=== PATIENT | female | born 1975 | race Caucasian/White ===

== ENCOUNTER 2019-12-04 16:04 | Outpatient (CLI) | payer BC, SELFPAY ==
--- NOTE | ~2019-12-04 | MM_ITS ---
EXAMINATION: MM scrn guru implant BI w ruddy HISTORY: Screening mammogram TECHNIQUE: Craniocaudal and mediolateral oblique 3-D tomosynthesis images with implant displacement a nd synthetic 2-D images were generated. Craniocaudal and mediolateral oblique views of the breasts wi thout implant displacement were obtained using full field digital mammography. CAD analysis was submi tted and interpreted. COMPARISON: 11/22/2018, 01/23/2017 BREAST PARENCHYMAL COMPOSITION: There are scattered areas of fibroglandular density. FINDINGS: There is no evidence of suspicious mass, calcification, or architectural distortion to sugg est malignancy in either breast. There has been no suspicious interval change. IMPRESSION: 1. No mammographic evidence of malignancy. 2. Recommend routine screening mammography in one year. BI-RADS Category 1: Negative Reviewed, dictated and finalized at location A.
== END 2019-12-04 16:05 | disposition home or self-care (01) ==
LOC: ANHIMG 16:07
PROVIDERS: PCP Family Medicine; Visit Provider Obstetrics & Gynecology
DX: Z12.31 Encounter for screening mammogram for malignant neoplasm of breast (principal)
CPT/HCPCS: 77063; 77067

== ENCOUNTER 2020-01-19 15:19 | Outpatient (CLI) | payer BC, SELFPAY ==
--- NOTE | ~2020-01-19 | US_ITS ---
EXAMINATION: US venous doppler [facility] DATE: 01/19/2020 15:49 INDICATION: Left lower limb swelling TECHNIQUE: Grayscale ultrasound images without and with compression and Doppler ultrasound images of the left lower extremity veins were obtained. COMPARISON: None. FINDINGS: The visualized portions of left common femoral vein, profunda (deep) femoral vein, femoral vein, popl iteal vein, peroneal veins, posterior tibial veins, gastrocnemius vein and greater saphenous vein out flow are patent. IMPRESSION: 1. No deep venous thrombosis in the left lower limb. Reviewed, dictated and finalized at location B. AUDIT MANAGER
== END 2020-01-19 15:20 | disposition home or self-care (01) ==
PROVIDERS: PCP Family Medicine; Visit Provider Family Medicine
DX: M79.89 Other specified soft tissue disorders (principal)
CPT/HCPCS: 93971

== ENCOUNTER 2020-06-27 23:49 | Emergency (ER) | payer BC, SELFPAY ==
--- NOTE | ~2020-06-27 | XR_ITS ---
EXAMINATION: XR chest 1V portable INDICATION: Hypotension TECHNIQUE: Portable AP chest at 0032 hours COMPARISON: 10/13/2016 FINDINGS: The lungs are free of acute opacities. There is no pleural effusion or pneumothorax. The ca rdiomediastinal silhouette is normal. The visualized osseous structures are unremarkable. IMPRESSION: 1. No acute cardiopulmonary abnormality. Reviewed, dictated and finalized at location A.
--- NOTE | ~2020-06-27 | CT_ITS ---
EXAMINATION: CT abdomen pelvis w con INDICATION: Epigastric pain TECHNIQUE: Computed tomographic images of the abdomen and pelvis were obtained after the administrati on of 100 cc of Omnipaque 350 intravenous contrast. The dose-length product (DLP) was 1449.37 mGy-cm. Automated exposure control and iterative reconstruction technique were employed. COMPARISON: 11/27/2018 FINDINGS: The lung bases are clear. The heart size is normal. Bilateral breast implants are noted. Th e liver is diffusely low in attenuation when compared with the spleen, consistent with hepatic steato sis. The spleen, pancreas, and gallbladder are normal. There are stable low-density nodules of the le ft adrenal gland measuring 10 mm and 13 mm, consistent with adenomas. The right adrenal gland is unre markable. The kidneys are normal. There appears to be mild wall thickening of the descending and sigm oid colon with subtle edematous stranding of the pericolic fat. No pathologically enlarged abdominal or pelvic lymph nodes are identified. There is no free intraperitoneal gas or evidence of bowel obstr uction. There is a moderate volume of liquid stool in the colon. IMPRESSION: 1. CT findings consistent with mild colitis of the descending and proximal sigmoid colon. Reviewed, dictated and finalized at location A. IMPRESSION: 1. CT findings consistent with mild colitis of the descending and proximal sigm oid colon.
[2020-06-27 23:54] VITALS: BP 90/50; PULSE 67; RESP 18; TEMP 36.6; O2SAT 99
[2020-06-28] VITALS (29 sets, daily range): BP systolic 75–147; BP diastolic 44–85; PULSE 57–76; RESP 14–22; O2SAT 99–100
--- NOTE | 2020-06-28 00:06 | ED.ABDPAIN ---
HPI - Abdominal Pain General Chief Complaint: Abdominal Pain Stated Complaint: abd pain Time Seen by Provider: 06/27/20 23:55 History of Present Illness HPI narrative: 45 yo female presents to the ED for abdominal pain. She reports that while eating tonight she suddenly developed upper abdominal pain. This was followed by feeling dizzy, warm, and nauseated. The pain then moved into her chest. That is when she became concerned and EMS was called. During triage here her BP was low, which she says is very out of the ordinary for her. Otherwise she reports that her symptoms have largely resolved. Related Data Home Medications Medication Instructions Recorded Confirmed albuterol sulfate 90 mcg/actuation 2 puff INHALATION Q6H PRN gm 12/31/18 05/19/20 aerosol inhaler Allergies Allergy/AdvReac Type Severity Reaction Status Date / Time No Known Allergies Allergy Verified 06/27/20 23:59 Review of Systems Review of Systems: All systems reviewed & are unremarkable except as noted in HPI and below Constitutional: Constitutional: Denies fever(s) ENT: Reports dizziness PMFSH Past Medical History Medical History ADD (attention deficit disorder) without hyperactivity Benign essential HTN Chronic pain Family History Family History Mother Diabetes mellitus Hypertension Asthma Family history of arthritis Father Hypertension Patient's father is in good health Family history of cardiovascular disease Family history of arthritis Family history of malignant neoplasm Sibling Patient's brother is in good health Family history of arthritis Social History Social History (Updated 05/18/20 @ 16:28 by Prachi Geller) Social History: Smoking packs per day: 1 Smoking cigarettes per day: 20.0 Smoking status: Former smoker Tobacco type: cigarettes Second hand tobacco smoke exposure: No Smoking end date: 02/06/16 Alcohol intake: never Substance use: never Substance use type: does not use Gender identity (if verbalized by the patient): Female Exam Const: General: healthy appearing, no acute distress and alert Orientation/consciousness: patient oriented x3 HENMT: Head: normal to inspection Neck: Neck: normal visual inspection and no lymphadenopathy Chest: Chest palpation & inspection: no tenderness Resp: Effort & Inspection: normal respiratory effort Auscultation: clear to auscultation bilaterally, no rales, no rhonchi and no wheezes Cardio: Jugular venous distension: no JVD Rate: regular rate Rhythm: regular rhythm Heart sounds: no murmurs GI: Inspection: non-distended GI Palp: Yes Soft to palpation, Yes Tenderness to palpation present (GI) (mild and diffuse), No Guarding due to palpation present (GI) and No Rebound tenderness present Auscultation: Hyperactive bowel sounds present Skin: General skin exam: normal color Neuro: General: patient oriented x3, moves all extremities, no focal motor deficits and CN's II-XI intact bilaterally Speech: normal speech Extrem: General: normal to inspection and no edema Psych: Appearance: grossly normal and well kempt Mental Status: mental status grossly normal Affect: normal affect Attitude: cooperative Course Vital Signs Vital signs: Vital Signs Temperature 36.6 C 06/27/20 23:54 Pulse Rate 67 06/27/20 23:54 Respiratory Rate 18 06/27/20 23:54 Blood Pressure 90/50 L 06/27/20 23:54 Pulse Oximetry 99 06/27/20 23:54 Temperature 36.6 C 06/27/20 23:54 Pulse Rate 74 06/28/20 03:20 Respiratory Rate 16 06/28/20 03:20 Blood Pressure 147/85 H 06/28/20 03:20 Pulse Oximetry 99 06/28/20 03:20 MDM - Abdominal Pain MDM Narrative Medical decision making narrative: SHe was initially mildy hypotensive. Labs hint at dehydration. This combined with ongoing vagal stimulation due to gastroenteritis
[2020-06-28] MEDS: SODIUM CHLORIDE 0.9% IV 1,000 ML 999 ML (00:07)
--- NOTE | 2020-06-28 00:18 | ECG_ITS ---
Measurements Intervals [place] Rate: 59 P: 146 WI: 153 QRS: 132 QRSD: 90 T: 106 QT: 422 QTc: 420 Interpretive Statements SINUS RHYTHM LIMB LEAD REVERSAL INCOMPLETE RIGHT BUNDLE BRANCH BLOCK LOW VOLTAGE- LIMB LEADS BASELINE ARTIFACT- II, III, AVF BORDERLINE ECG Electronically Signed On 06-28-2020 6:05:48 CDT by Monroe Miller D.O.
[2020-06-28 00:36] LABS: Basophils Absolute Auto 0.1 K/mm3 (0.0-0.1); Basophils Percent Auto 0.5 % (0.2-1.2); Eosinophils Absolute Auto 0.1 K/mm3 (0-0.3); Eosinophils Percent Auto 0.4 % (0-4.4); Hematocrit 42.2 % (37.0-47.0); Hemoglobin 14.4 g/dL (12.0-15.0); Immature Granulocyte Absolute 0.12 K/mm3 (0.00-0.031); Immature Granulocyte Percent A 0.9 % (0-0.5); Lymphocytes Absolute Auto 2.41 K/mm3 (0.9-3.2); Lymphocytes Percent Auto 18.9 % (18.3-44.2); Mean Corpuscular HGB Conc 34.1 g/dl (32-36); Mean Corpuscular Hemoglobin 31.4 pg (26-34); Mean Corpuscular Volume 91.9 fl (80-100); Mean Platelet Volume 9.3 fl (7.4-10.4); Monocytes Absolute Auto 0.7 K/mm3 (0.1-0.6); Monocytes Percent Auto 5.6 % (2.6-8.5); Neutrophils Absolute Auto 9.4 K/mm3 (1.3-6.7); Neutrophils Percent Auto 73.7 % (45.5-73.1); Platelet Count Result 286 k/mm3 (150-375); Red Blood Count 4.59 M/mm3 (4.2-5.4); Red Cell Distribution Width 12.8 % (11.5-14.5); White Blood Count 12.7 K/mm3 (4.5-10.0)
[2020-06-28 00:44] LABS: INR 1.1; Prothrombin Time 14.4 Seconds (11.1-14.7)
[2020-06-28 00:45] LABS: Partial Thromboplastin Time 23.1 SECONDS (22.3-36.8)
[2020-06-28 00:46] LABS: Lactic Acid Reflex 2.3 mmol/L (0.7-2.1)
[2020-06-28 00:47] LABS: Alanine Aminotransferase 34 U/L (4-35); Alkaline Phosphatase 83 U/L (38-126); Anion Gap 4 mmol/L (8-16); Aspartate Amino Transferase 41 U/L (14-36); Bilirubin,Total 0.4 mg/dL (0.2-1.3); Blood Urea Nitrogen 10 mg/dL (7-17); Calcium 8.5 mg/dL (8.4-10.2); Carbon Dioxide 26 mmol/L (22-30); Chloride 105 mmol/L (98-107); Estimated CRCL calculation 89 ml/min; Estimated Glomerular Filt Rate 60; Glucose 129 mg/dL (65-105); Lipase 83 U/L (23-300); Potassium 3.9 mmol/L (3.4-5.0); Sodium 135 mmol/L (137-145)
[2020-06-28 00:57] LABS: Troponin I < 0.012 ng/mL (0.000-0.034)
--- NOTE | 2020-06-28 01:21 | PC.NURSE ---
Pt has now started to have diarrhea. No blood/dark stools. Pt reports abd pain is easing up.
--- NOTE | 2020-06-28 01:22 | PC.NURSE ---
Pt reports she normally has HTN 150/90 or so. Pt reports she forgot to take her Lisinopril today.
[2020-06-28 01:23] LABS: Add Urine Microscopic? YES; Appearance Urine Cloudy (Clear); Bacteria Urine Trace /hpf; Bilirubin Urine Negative (Negative); Blood Urine Negative (Negative); Color Urine Amber (Yellow); Glucose Urine UA Negative (Negative); Hyaline Casts Urine 50+ /lpf; Ketones Urine Negative (Negative); Leukocyte Esterase Ur Negative LEU/UL (Negative); Mucus Urine Few /lpf; Nitrate Urine Negative (Negative); Protein Urine 2+ mg/dL (Negative); Specific Grav Ur 1.012 (1.001-1.035); Squamous Epithelial Cell Urine Moderate /hpf (Few)
[2020-06-28] MEDS: SODIUM CHLORIDE 0.9% IV 1,000 ML 999 ML IV CONT (02:02)
--- NOTE | 2020-06-28 02:03 | PC.NURSE ---
Pt reports she is having diarrhea x 3 since arrival. Pt reports nausea is returning.
[2020-06-28] MEDS: ONDANSETRON INJ 4 MG/2 ML VIAL IV PUSH (02:07)
[2020-06-28] MEDS: LOPERAMIDE HCL 2 MG CAPSULE 4 MG PO (02:07)
[2020-06-28 03:32] LABS: Reflex Lactic Acid Yes or No Add Lactic
== END 2020-06-28 03:20 | disposition home or self-care (01) ==
PROVIDERS: Emergency Provider Emergency Medicine; PCP Family Medicine
DX: K52.9 Noninfective gastroenteritis and colitis, unspecified (principal); I10 Essential (primary) hypertension; F98.8 Other specified behavioral and emotional disorders with onset usually occurring in childhood and adolescence; Z87.891 Personal history of nicotine dependence
CPT/HCPCS: 36415; 71045; 74177; 80053; 81001; 81025; 83605; 83690; 84484; 85025; 85610; 85730; 86850; 86900; 86901; 93005; 96361; 96374; 99284; A9270; J2405; J7030; Q9967

== ENCOUNTER 2022-11-15 15:01 | Outpatient (CLI) | payer BC, SELFPAY ==
--- NOTE | ~2022-11-15 | MM_ITS ---
EXAMINATION: MM scrn guru implant BI w ruddy HISTORY: Screening mammogram TECHNIQUE: Craniocaudal and mediolateral oblique 3-D tomosynthesis images with implant displacement a nd synthetic 2-D images were generated. Craniocaudal and mediolateral oblique views of the breasts wi thout implant displacement were obtained using full field digital mammography. CAD analysis was submi tted and interpreted. COMPARISON: 12/04/2019, 11/12/2018 bilateral implant screening mammogram examinations BREAST PARENCHYMAL COMPOSITION: There are scattered areas of fibroglandular density. FINDINGS: Status post bilateral augmentation mammoplasty. There is no evidence of suspicious mass, ca lcification, or architectural distortion to suggest malignancy in either breast. There has been no moore spicious interval change. IMPRESSION: 1. No mammographic evidence of malignancy. 2. Recommend routine screening mammography in one year. BI-RADS Category 1: Negative Reviewed, dictated and finalized at location A.
== END 2022-11-15 15:02 | disposition home or self-care (01) ==
LOC: ANHIMG 15:04
PROVIDERS: PCP Family Medicine; Visit Provider Family Medicine
DX: Z12.31 Encounter for screening mammogram for malignant neoplasm of breast (principal)
CPT/HCPCS: 77063; 77067

== ENCOUNTER 2025-01-26 10:10 | Outpatient (CLI) | payer BC, SELFPAY ==
--- OUTSIDE RECORDS SUMMARY | 2025-01-26 11:38 | XMS_ITS | Encounter Summary ---
Author Organization [facility] Address [address] [place] [address] Care Team Providers Care Nurse Midwife/Clinical Instructor Name Role Phone Lamin Chu MD Primary Care Provider [phone] Encounter Details Date Type Department Care Team (Late st Contact Info) Description 02/18/2001 Outpatient Historical [facility] 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 Gender Identity Not on file Sexual Orientation Not on file documented as of this encounter Plan of Treatment Not on file documented as of this encounter Visit Diagnoses Not on filedocumented in this encounter Additional Health Concerns Infection Onset Date Last Indicated Resolved Time R/O GI Pathogen 06/23/2022 06/23/2022 06/23/2022 3 :02 PM CDT R/O GI Pathogen 07/18/2023 07/18/2023 07/18/2023 3 :02 PM CDT documented as of this encounter Care Teams Nurse Midwife/Clinical Instructor Relationship Specialty Start Date End Date Lamin Chu MD [address] [place] [id number] PCP - General Family Practice 09/11/22 documented as of this encounter
--- OUTSIDE RECORDS SUMMARY | 2025-01-26 11:38 | XMS_ITS | Encounter Summary ---
Author Organization [facility] Address [address] [place] [address] Care Team Providers Care Marbleizing Machine Tender Name Role Phone Lamin Chu MD Primary Care Provider [phone] Encounter Details Date Type Department Care Team (Late st Contact Info) Description 07/29/2003 Outpatient Historical [facility] [address] [address] [phone] Jaun Mclaughlin MD [address] [place] [address] [phone] Social History Tobacco Use Types Packs/Day Years Used Date Smoking Tobacco: Never Assessed Comments Unknown Sex and Gender Information Value Date Recorded Sex Assigned at Not on file 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
--- OUTSIDE RECORDS SUMMARY | 2025-01-26 11:38 | XMS_ITS | Clinical Summary ---
Author Organization [facility] Address [address] [place] [address] Care Team Providers Care Guest Relation Officer Name Role Phone Sharee Chu MD Primary Care Provider [phone] Allergies No known active allergies Medications cholecalcifero l (VITAMIN D-3) 2000 unit capsule Take 1 capsule (2,000 Units total) by mouth daily 90 capsule 1 4 Active lisdexamfetami ne (VYVANSE) 70 mg capsule Take 1 capsule (70 mg total) by mouth every morning 30 capsule 5 Active amLODIPine (NORVASC) 5 mg tablet TAKE 1 TABLET (5 MG TOTAL) BY MOUTH DAILY. 90 tablet 3 5 026 Active venlafaxine XR (EFFEXOR-XR) 150 mg 24 hr capsuleIndicat ions:Severe episode of recurrent major depressive disorder, without psychotic features (HCC) TAKE 1 CAPSULE BY MOUTH EVERY DAY 90 capsule 3 5 Active triamcinolone (KENALOG) 0.1 % cream Apply to affected area 1-2 times daily as needed. Avoid face and groin. 80 g 5 5 026 Active lisinopriL (PRINIVIL,ZEST RIL) 20 mg tablet TAKE 1 TABLET BY MOUTH TWICE A DAY 180 tablet 3 5 Active semaglutide (WEGOVY) 1.7 mg/0.75 mL auto-injector Inject 1.7 mg under the skin every 7 days 3 mL 2 5 Active ondansetron (ZOFRAN) 4 mg tablet TAKE 1 TABLET BY MOUTH EVERY 8 HOURS NEEDED FOR NAUSEA AND VOMITING 18 tablet [address] (PROTONIX) 40 mg EC tablet TAKE 1 TABLET BY MOUTH EVERY DAY 90 tablet [address] (PROTONIX) 40 mg EC tablet Take 1 tablet (40 mg total) by mouth 2 (two) times a day 180 tablet 3 4 025 Discontinued Active Problems Problem Noted Date Diagnosed Date Generalized anxiety disorder 09/21/2024 Assessment & Plan (09/21/2024 9:40 AM CDT): Contionues on venlafaxine xr 150mg daily basis and will continue to follow resopnse. NO sleep disturbance and will monitor response. Annual physical exam 09/21/2024 Assessment & Plan (09/21/2024 9:41 AM CDT): Focus of exam is preventative in nature. Reviewed immunizations, reviewed sun/skin cnacer screening. Reviewed colon/breaset cancer screenign. Revewied well woman exma and iwll montior response. ENcourage target aeroibc exericse. Gastroesophageal reflux disease 09/21/2024 Assessment & Plan (09/21/2024 9:41 AM CDT): Stable on pantoprazole 40mg bid. No dysphagia, no melena, no hematochezia. WIll monitor response. Attention deficit disorder 09/21/2024 Assessment & Plan (09/21/2024 9:42 AM CDT): Reviewed potential side effects related to vyvanse. Reveiwed stimulant effects on nail feeder stimulation with possible headache, tremor, anorexia, palpitations. WIll montior respnose to reduced dose and continue to ofllow. Obesity (BMI 30.0-34.9) 09/21/2024 Assessment & Plan (09/21/2024 9:42 AM CDT): ENcourage healthy food chocies. COntinue to target response to glp-1 agonist therapy as aptient with qualifying bmi and iwll montior respnose. BMI 31.0-31.9,adult 09/21/2024 Assessment & Plan (09/21/2024 9:42 AM CDT): As above. Prediabetes 09/21/2024 Assessment & Plan (09/21/2024 9:42 AM CDT): Recheck A1c and will follow response. Lipid screening 09/21/2024 Vitamin D deficiency 09/21/2024 Assessment & Plan (09/21/2024 9:43 AM CDT): Contniue to montior vitamin d supplementaiton and iwll montior ersponse. Encounter for screening mamm ogram for malignant neoplasm of breast 09/21/2024 Assessment & Plan (09/21/2024 9:43 AM CDT): Focus of exam is preventative in nature. CONtinue on mammogram screneing and will follow response. Uncontrolled hypertension 01/23/2023 Vasovagal syncope 01/23/2023 Class 1 obesity due to exces s calories without serious comorbidity with body mass index (BMI) of 34.0 to 34.9 in adult 09/12/2021 Assessment & Plan (09/12/2021 3:31 PM CDT): Encouraged calorie tracking scott. Discussed healthy diet and importance of regular physical activity. Encounter for medical examination to establish c are 09/12/2021 Assessment & Plan (09/12/2021 6:17 PM CDT): Patient with multiple medical complaints today. Reviewed past medical record as able, will request records and update. She is due for mammogram and well-woman exam. Mammogram ordered today and discussed the need to call and schedule well-woman exam with molder setter. Patient has history of colonoscopy, unsure of date or where she had this completed but tells me that she did have polyps. Reports family history of colon cancer. Preventive exam; reviewed recommended preventive screenings and vaccinations. Encourage annual flu vaccine. Hypertension, essential 09/12/2021 Assessment & Plan (09/12/2021 6:15 PM CDT): Previously taking lisinopril-hydrochlorothiazide 20-12.5 mg per day and amlodipine 10 mg daily. Has been out of amlodipine the past few weeks. Blood pressure today 138/88, recommended patient restart amlodipine but will reduce dose to 5 mg once daily. Return to office in 1 month for BP check. History of colitis 09/12/2021 Assessment & Plan (09/12/2021 6:22 PM CDT): Not currently experiencing any abdominal pain. However patient reports she has episodes, f lare ups periodically. Discussed need to avoid spicy, fatty, greasy foods and recommended she keep a food diary. Will request records of previous colonoscopy. Normal exam today. Reviewed red flags warranting immediate evaluation. Will continue to monitor. Lumbar pain 06/03/2020 Assessment & Plan (09/12/2021 3:12 PM CDT): Previously following with interventional pain consultants. Dr. Joy. Assessment & Plan (06/03/2020 4:17 PM CDT): Ms. Hogan presents with low back pain and bilateral leg pain. She has been previously worked up by Dr. Marcin Gray in the past and was offered surgery in the form of L4-5 fusion. Due to insurance changes, she can the longer follow-up with him. On the current MRI imaging I do not see significant nerve root pathology to explain symptoms. After the patient left, she went and got flexion-extension films which show very minimal anterior listhesis of L4 on L5 which does not change on dynamic range of motion. I do not see pathology that would benefit from surgical intervention at this time. Patient may benefit from a CT of her lumbar spine to look for pars defects. Our office will speak to her by phone about the results and further recommendations. We will set up a follow-up appointment for 4 months time. We will refer her to Pain Management in the interim for epidural steroid injections. Chronic infection of sinus 06/19/2011 Resolved Problems Problem Noted Date Diagnosed Date Resolved Date Severe episode of recurrent major depressive disorder, without psychotic features 09/12/2021 Assessment & Plan (09/12/2021 6:19 PM CDT): Previously following with Psychiatry, Dr. Suarez. Depression is worsening, patient feels this is related to weight gain and stressors related to caring for her special needs children. She is very interested in counseling options, today she was given list of local area counselors. She is also interested in a new psychiatrist, referral placed to Psychiatry. She denies feeling hopeless or having any thoughts of self-harm/suicide. Refilled venlafaxine 150 mg tablet and bupropion 150 mg b.i.d. Encounters Date Type Department Care Team Description 01/14/2025 Telephone [facility] [address] [address] Sharee Chu MD PA Wegovy 12/17/2024 10:11 AM BOILER TUBE BLOWER - 12/17/2024 11:59 PM BOILER TUBE BLOWER Hospital Encounter [facility] Medical Office [facility] [id number] [facility] [address] [place] [address] Lesion of skin of breast; History of bilateral breast implants; Breast cancer screening by mammogram Discharge Disposition: Discharge to home or self care 12/17/2024 Results Follow-Up [facility] [address] [address] Sharee Chu MD Diagnostic Mammogram Bilateral W Ameya W Implants 12/17/2024 Orders Only [facility] [address] [address] Sharee Chu MD from Last 3 Months Immunizations Immunization Administration Dates Next Due Hib (PRP-D) 12/26/2013 Influenza, Quadrivalent, Spl it, Preservative Free, Intramuscular 01/27/2016 Influenza, Trivalent, IM (MDV) 12/02/2013,2012 Influenza, Unspecified 08/28/2023(Deferr ed: Patient Refused),10/06/2022(Deferred: Patient Refused),02/05/2022(Deferred: Patient Refused),02/05/2021(Deferred: Patient Refused),11/05/2020(Deferred: Patient Refused) 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[employer]) SARS-CoV-2 Vaccination 04/15/2020 Pneumococcal Polysaccharide PPV23 12/26/2013 Surgical History Surgery Date Site/Laterality Comments HERNIA REPAIR SECTION HYSTERECTOMY FACET BLOCK LUMBAR SACRAL 1 LEVEL LEFT 10/29/2017 Le ft BREAST SURGERY 1999 AUGMENTATION MAMMAPLASTY Bilateral 2000 Medical History Medical History Date Comments ADHD (attention deficit hyperactivity disorder) Allergic rhinitis Anxiety Asthma Depression Gastric reflux Headache Hypertension Kidney stone Migraines MRSA (methicillin resistant Staphylococcus aureu s) Pneumonia Scoliosis Urinary tract infection Varicella Weight loss Neuromuscular disorder GERD (gastroesophageal reflux disease) Arthritis Family History Medical History Relation Name Comments Learning disabilities Brother C Breitweiser Asthma Daughter C Sample Depression Daughter C Sample Developmental delay Daughter C Sample Diabetes Daughter C Sample Hearing loss Daughter C Sample Learning disabilities Daughter C Sample Arthritis Father E Breitweiser Cancer Father E Breitweiser Diabetes Father E Breitweiser Early Father E Breitweiser Gout Father E Breitweiser Hearing loss Father E Breitweiser Heart attack Father E Breitweiser Heart disease Father E Breitweiser Hypertension Father E Breitweiser Obesity Father E Breitweiser Prostate cancer Father E Breitweiser Rheum arthritis Father E Breitweiser Diabetes Father's Sister 1 D Breitweiser Diabetes Father's Sister 2 B [place] COPD Maternal Grandmother L Yee Cancer Maternal Grandmother L Yee Arthritis Mother R [place] Asthma Mother R [place] COPD Mother R [place] Depression Mother [place] Diabetes Mother [place] Hypertension Mother [place] Lupus Mother R [place] Mental illness Mother R Agus Scoliosis Mother R Agus Cancer Paternal Grandmother A Breitweiser Diabetes Paternal Grandmother A Breitweiser Depression Son B Sample Developmental delay Son B Sample Learning disabilities Son B Sample Relation Name Status Comments Brother C Breitweiser Alive Daughter C Sample Alive Father E Breitweiser Alive Father's Sister 1 D Breitweiser Alive Father's Sister 2 B Cecilio Alive Maternal Grandmother L Yee Alive Mother R Agus Paternal Grandmother A Breitweiser Alive Son B Sample Alive Social History Tobacco Use Types Packs/Day Years Used Date Smoking Tobacco: Former Smokeless Tobacco: Never Tobacco Cessation:Counseling Given: Not Answered AUDIT-C Answer Date Recorded Q1: How often do you have a drink containing alc ohol? 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 on file Not on file Not on fi le Obstetrics History Para Term AB IAB SAB Ectopic Multiple Livin g Live Births 2 2 Date Outcome GA Total Labor Labor/2nd/3rd Weight Sex Type Anes PTL Zakia A1 A5 Name Clin Last Filed Vital Signs Vital Sign Reading Time Taken Comments Blood Pressure 124/88 09/10/2024 10:01 AM CDT Pulse 76 09/10/2024 10:01 AM CDT Temperature 36.8 C (98.2 F) 09/10/2024 10:01 AM CDT Respiratory Rate 18 09/10/2024 10:01 AM CDT Oxygen Saturation 98% 09/10/2024 10:01 AM CDT room air Inhaled Oxygen Concentration - - Weight 109.3 kg (241 lb) 12/17/2024 10:37 AM BOILER TUBE BLOWER Height 185.4 cm (6' 0.99) 12/17/2024 10:[address] Body Mass Index 31.8 12/17/2024 10:37 AM BOILER TUBE BLOWER Plan of Treatment Health Maintenance Due Date Last Done Comments Hepatitis C Screening 1975 DTaP/Tdap/Td Vaccine (1 - Tdap) 1986 Hepatitis B Screening 1993 Covid-19 Vaccine (2 - season) 2024 04/15/2020 Influenza Vaccine (#1) 2024 6, 12/02/2013, 01/20/2013 Depression Screening 09/10/2025 09/10/2024, 08/08/2023, 07/17/2023, Additional history exists Regular Well Visit/Exam 18-64 09/10/2025 09/10/2024, 07/11/2022 Breast Cancer Screening-Mammogram 12/17/2025 12/17/2024 Colon Cancer Screening-Colonoscopy 12/19/2027 12/18/2022 Pneumococcal vaccine <65 Aged Out 12/26/2013 No longer eligible based on patient's age to complete this topic Procedures Procedure Name Priority Date/Time Associated Diagnosis Comments DIAGNOSTIC MAMMOGRAM BILATERAL W AMEYA W IMPLANTS Schedule Routine, Read Routine (OP Routine) 12/17/2024 10:38 AM BOILER TUBE BLOWER Lesion of skin of breast History of bilateral breast implants Breast cancer screening by mammogram COLONOSCOPY Routine 12/18/2022 from Last 3 Months or Most Recently Relevant to Health Maintenance Results * Diagnostic Mammogram Bilateral W Ameya W Implants (12/17/2024 10:38 AM BOILER TUBE BLOWER) Anatomical Region Laterality Modality Breast Bilateral Mammography 12/17/2024 10:5 5 AM BOILER TUBE BLOWER Impressions 12/17/2024 10:55 AM BOILER TUBE BLOWER There is no mammographic evidence of malignancy. The intermittent skin lesion should be managed clinically. BI-RADS: 1 - Negative. Recommendation: Annual screening mammography. The patient has been or will be contacted. The patient will be entered into a reminder system with a target due date of 1 year for her next mammogram. Electronically signed by: Sharonda Ellis M.D. Narrative 12/17/2024 10:55 AM BOILER TUBE BLOWER EXAMINATION: DIAGNOSTIC MAMMOGRAM BILATERAL W AMEYA W IMPLANTS ORDERING HEALTHCARE PROVIDER: SHAREE CHU HISTORY: Intermittent left breast skin lesion. Per the patient, the lesion is not there on the day of the study. The technologist noted no abnormalities. COMPARISON: 11/15/2022, 12/04/2019, 11/12/2018 TECHNIQUE: CC and MLO views of the bilateral breasts were obtained with digital technique using breast tomosynthesis with C view. Pushback views were performed. Computer aided detection was utilized. FINDINGS: DENSITY: There are scattered areas of fibroglandular density. BREASTS: There are no suspicious masses, suspicious calcifications, or other suspicious findings in either breast. There has been no suspicious interval change. There are bilateral retroglandular implants. There are benign bilateral microcalcifications. A BB was placed on the site of the previous skin lesion. No abnormality is appreciated. us Sharee Chu MD IMG MAMMO PROCEDURES Amada l Result * HM COLONOSCOPY (12/18/2022) Historical Provider HEALTH MAINTENANCE Final Result from Last 3 Months or Most Recently Relevant to Health Maintenance Insurance [employer] ACCESS CHOICE [employer] ACC[employer] CHOICE ANTHEM ACCESS CHOICE Care Teams Guest Relation Officer Relationship Specialty Start Date End Date Sharee Chu MD [address] [place] [address] PCP - General Family Medicine 09/12/21
--- OUTSIDE RECORDS SUMMARY | 2025-01-26 11:38 | XMS_ITS | Encounter Summary ---
Author Organization [facility] Address [address] [place] [address] Care Team Providers Care Maitre D Name Role Phone Lamin Chu MD Primary Care Provider [phone] Encounter Details Date Type Department Care Team (Late st Contact Info) Description 06/25/2000 Outpatient Historical [facility] [address] [facility] [address] [address] Jaun Mclaughlin MD [address] [place] [phone] Social History Tobacco Use Types Packs/Day Years Used Date Smoking Tobacco: Never Assessed Comments Unknown Sex and Gender Information Value Date Recorded Sex Assigned at Not on file Legal Sex Female 4:18 AM ORACLE DEVELOPER Gender Identity Not on file Sexual Orientation [...] documented as of this encounter Care Teams Maitre D Relationship Specialty Start Date End Date Lamin Chu MD [address] [place] [id number] PCP - General Family Practice 09/11/22 documented as of this encounter
--- OUTSIDE RECORDS SUMMARY | 2025-01-26 11:38 | XMS_ITS | Encounter Summary ---
Author Organization [facility] Address [address] [place] [address] Care Team Providers Care Support Worker Name Role Phone Lamin Chu MD Primary Care Provider [phone] Encounter Details Date Type Department Care Team (Late st Contact Info) Description 07/10/2005 Outpatient Historical [facility] [address] [facility] [address] [phone] Jaun Mcluaghlin MD [address] [place] [phone] Social History Tobacco Use Types Packs/Day Years Used Date Smoking Tobacco: Never Assessed Comments Unknown Sex and Gender Information Value Date Recorded Sex Assigned at Not on file Legal Sex Female 4:18 AM KILN FURNITURE SAW TENDER Gender Identity Not on file Sexual Orientation [...] documented as of this encounter Care Teams Support Worker Relationship Specialty Start Date End Date Lamin Chu MD [address] [place] [id number] PCP - General Family Practice 09/11/22 documented as of this encounter
--- OUTSIDE RECORDS SUMMARY | 2025-01-26 11:38 | XMS_ITS | Encounter Summary ---
Author Organization [facility] Address [address] [place] [address] Care Team Providers Care Customs Investigator Name Role Phone Lamin Chu MD Primary Care Provider [phone] Encounter Details Date Type Department Care Team (Late st Contact Info) Description 02/12/2001 Outpatient Historical [facility] [address] [facility] [address] [phone] Jaun Mclaughlin MD [address] [place] [phone] Social History Tobacco Use Types Packs/Day Years Used Date Smoking Tobacco: Never Assessed Comments Unknown Sex and Gender Information Value Date Recorded Sex Assigned at Not on file Legal Sex Female 4:18 AM BLEACH BOILER 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
--- OUTSIDE RECORDS SUMMARY | 2025-01-26 11:38 | XMS_ITS | Clinical Summary ---
Author Organization [facility] Address [address] [place] [address] Phone Care Team Providers Care Paint Spray Inspector Name Role Phone Lamin Chu MD Primary Care Provider [phone] Allergies No known active allergies Medications venlafaxine (EFFEXOR XR) 150 mg Extended Release 24 hour capsule Take 150 mg by mouth daily. 2 Active hyoscyamine 0.[address] 1 Tablet (0.125 mg) under tongue every 6 hours as needed for Spasm or Other (See Comment) (abdominal pain). 30 Tablet 3 Active polyethylene glycol (MIRALAX) 17 gram Powder in Packet Take 1 Packet (17 Grams) by mouth 2 times daily as needed for Constipation. 60 Packet 3 Active lisdexamfetamin e (VYVANSE) 70 mg capsule Take 70 mg by mouth daily in the morning. Active cholecalciferol , vitamin D3, 5,000 unit Take 400 Units by mouth daily. Active tirzepatide, weight loss, (Zepbound) 2.5 mg/0.5 mL Pen Injector Inject 2.5 mg by subcutaneous injection every 7 days. 4 Active lisinopriL (PRINIVIL) 20 mg tablet Take 1 Tablet (20 mg) by mouth 2 times daily. 60 Tablet 4 Active ondansetron (ZOFRAN ODT) 4 mg Tablet, Rapid Dissolve Take 1 Tablet (4 mg) by mouth every 8 hours as needed for Nausea/Emesis. Dissolve tablet on top of tongue, then swallow with saliva. 15 Tablet 4 Active pantoprazole (PROTONIX) 40 mg Tablet, Delayed Release (E.C.) Take 1 Tablet (40 mg) by mouth 2 times daily. 30 Tablet 4 Active Active Problems Problem Noted Date Diagnosed Date Leukocytosis (leucocytosis) 07/18/2023 Acute diarrhea 07/18/2023 LORENA (acute kidney injury) 07/18/2023 Situational mixed anxiety and depressive disorde r 06/23/2022 Hematochezia 06/23/2022 Abdominal pain 06/23/2022 Ischemic colitis 06/23/2022 Hypertension, essential 09/12/2021 Overview (06/23/2022): Last Assessment & Plan: Previously taking lisinopril-hydrochlorothiazide 20-12.5 mg per day and amlodipine 10 mg daily. Has been out of amlodipine the past few weeks. Blood pressure today 138/88, recommended patient restart amlodipine but will reduce dose to 5 mg once daily. Return to office in 1 month for BP check. Lumbar pain 06/03/2020 Overview (06/23/2022): Last Assessment & Plan: Previously following with interventional pain consultants. Dr. Joy. Family History Medical History Relation Name Comments Colon Polyps Brother Cancer Father Colon Polyps Father Heart Disease Father Hypertension Father Other Father Colon Cancer Maternal Grandmother Colon Polyps Mother Depression Mother Relation Name Status Comments Brother Father Alive Maternal Grandmother Mother Social History Tobacco Use Types Packs/Day Years Used Date Smoking Tobacco: Former Cigarettes Tobacco Cessation:Counseling Given: Not Answered Alcohol Use Standard Drinks/Week Comments Not Currently 0 (1 standard drink = 0.6 oz pur e alcohol) Feeling Safe Answer Date Recorded Are you in a relationship wi th someone who hurts you emotionally and/or physically? No 07/18/2023 Food Insecurity Answer Date Recorded Social/Environmental Concerns No concerns Transportation Needs Answer Date Record ed Social/Environmental Concerns No concerns Housing Stability Answer Date Recorded Social/Environmental Concerns No concerns Utility Needs Answer Date Recorded Social/Environmental Concerns No concerns Comments No Sex and Gender Information Value Date Recorded Sex Assigned at Not on file Legal Sex Female 4:18 AM ELECTRICAL LINE SPLICER Gender Identity Not on file Sexual Orientation Not on file Last Filed Vital Signs Vital Sign Reading Time Taken Comments Blood Pressure 125/76 07/18/2023 4:24 PM CDT Pulse 73 07/18/2023 11:20 AM CDT Temperature 36.7 C (98 F) 07/18/2023 4:24 PM CDT Respiratory Rate 16 07/18/2023 4:24 PM CDT Oxygen Saturation 99% 07/18/2023 4:24 PM CDT Inhaled Oxygen Concentration - - Weight 68 kg (150 lb) 07/18/2023 1:31 AM CDT Height 188 cm (6' 2) 07/18/2023 1:31 AM CDT Body Mass Index 19.26 07/18/2023 1:31 AM CDT Plan of Treatment Health Maintenance Due Date Last Done Comments DTAP/TDAP/TD VACCINES (1 - Tdap) 1994 HEPATITIS B VACCINES (1 of 3 - 19+ 3-dose series) 1994 BREAST CANCER SCREENING 2015 FIT-DNA Q 3 years 02/05/2020 FIT/FOBT Q 1 year 02/05/2020 Flex Sig/CT Colonography Q 5 years 02/05/2020 INFLUENZA VACCINE (#1) 2024 6, 12/02/2013, 01/20/2013 COVID-19 Vaccine ( season) 10/06/202412/2020 COLORECTAL SCREENING 12/18/2032 12/18/2022, 12/19/19 23 Colorectal Cancer Screening 12/18/2032 Procedures Procedure Name Priority Date/Time Associated Diagnosis Comments COLONOSCOPY REPORT 12/18/2022 2: 37 PM ELECTRICAL LINE SPLICER from Last 3 Months or Most Recently Relevant to Health Maintenance Results * COLONOSCOPY REPORT (12/18/2022 2:37 PM ELECTRICAL LINE SPLICER) Narrative Procedure Note Rosales Wagner MD - 12/18/2022 2:37 PM CST [facility] Endoscopy Patient Name: Daryl Hogan Procedure Date: 12/18/2022 Date of : 1975 Attending MD: Rosales Wagner MD, Procedure: Colonoscopy Indications: Hospitalized with abdominal pain and CT evidence for colitis 06/2022). Providers: Rosales Wagner MD Referring MD: Armen Thomas, Lamin Chu MD Medicines: Propofol per Anesthesia Complications: No immediate complications. Procedure: Informed consent was obtained for the procedure, including moderate sedation after risks were discussed. Based on the pre-procedure assessment, including review of the patient's medical history, medications, allergies, and review of systems, the patient was deemed to be an appropriate candidate for sedation. A timeout was performed. Continuous ECG monitoring, pulse oximetry, blood pressure monitoring, and direct observation were performed. The Colonoscope was introduced through the anus and advanced to the terminal ileum, with identification of the appendiceal orifice and IC valve. The colonoscopy was performed with some difficulty as related to a somewhat fixated sigmoid colon. The patient tolerated the procedure well. The quality of the bowel preparation was good. Estimated Blood Loss: Estimated blood loss: none. Findings: Multiple small-mouthed diverticula were found in the sigmoid colon. Internal hemorrhoids were found during retroflexion. The hemorrhoids were small. Five sessile polyps were found in the recto-sigmoid colon. The polyps were 4 to 6 mm in size. These polyps were removed with a cold snare. Resection and retrieval were complete. Impression: - Mild-moderate diverticulosis. - Internal hemorrhoids. - 5 small hyperplastic appearing rectosigmoid colon polyps. Resected and retrieved. Recommendation: - Await pathology results. Rosales Wagner MD 12/18/2022 2:36:58 PM This report has been signed electronically. Number of Addenda: [address]; [place] [address] Rosales Wagner MD GI PROCEDURE ORDERABLES Final Re sult from Last 3 Months or Most Recently Relevant to Health Maintenance Insurance [facility] BLUE ACCESS CHOICE Advance Directives For more information, please contact: [phone] * Full Code (Latest Code Status on File) Date Activated Date Inactivated Comments 07/18/2023 4:04 PM 07/18/2023 6:55 PM * Full Code Date Activated Date Inactivated Comments 12/18/2022 1:21 PM 12/18/2022 5:20 PM * Full Code Date Activated Date Inactivated Comments 06/23/2022 3:09 PM 06/24/2022 4:58 PM Care Teams Paint Spray Inspector Relationship Specialty Start Date End Date Lamin Chu MD [address] [place] [address] PCP - General Family Practice 09/11/22
--- OUTSIDE RECORDS SUMMARY | 2025-01-26 11:38 | XMS_ITS | Encounter Summary ---
Author Organization [facility] Address [address] [place] [address] Care Team Providers Care Track Grinder Operator Name Role Phone Lamin Chu MD Primary Care Provider [phone] Encounter Details Date Type Department Care Team (Late st Contact Info) Description 02/06/2001 Outpatient Historical [facility] [address] [facility] [address] [address] Jaun Mclaughlin MD [address] [place] [phone] Social History Tobacco Use Types Packs/Day Years Used Date Smoking Tobacco: Never Assessed Comments Unknown Sex and Gender Information Value Date Recorded Sex Assigned at Not on file Legal Sex Female 4:18 AM 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
--- OUTSIDE RECORDS SUMMARY | 2025-01-26 11:38 | XMS_ITS | Encounter Summary ---
Author Organization [facility] Address [address] [place] [address] Care Team Providers Care Packager Name Role Phone Lamin Chu MD Primary Care Provider [phone] Encounter Details Date Type Department Care Team (Late st Contact Info) Description 03/06/2005 Outpatient Historical [facility] [address] [facility] [address] [address] Jaun Mclaughlin MD [address] [place] [phone] Social History Tobacco Use Types Packs/Day Years Used Date Smoking Tobacco: Never Assessed Comments Unknown Sex and Gender Information Value Date Recorded Sex Assigned at Not on file Legal Sex Female 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
--- OUTSIDE RECORDS SUMMARY | 2025-01-26 11:38 | XMS_ITS | Encounter Summary ---
Author Organization [facility] Address [address] [place] [address] Care Team Providers Care Corporate Associate Attorney Name Role Phone Lamin Chu MD Primary Care Provider [phone] Encounter Details Date Type Department Care Team (Late st Contact Info) Description 03/23/1999 Outpatient Historical [facility] Care [facility] [address] [facility] [address] [place] [address] Jaun Mclaughlin MD [address] [place] [id number] Social History Tobacco Use Types Packs/Day Years Used Date Smoking Tobacco: Never Assessed Comments Unknown Sex and Gender Information Value Date Recorded Sex Assigned at Not on file Legal Sex Female 4:18 AM ACCOUNTANT ASSISTANT Gender Identity Not on file Sexual Orientation [...] documented as of this encounter Care Teams Corporate Associate Attorney Relationship Specialty Start Date End Date Lamin Chu MD [address] [place] [phone] PCP - General Family Practice 09/11/22 documented as of this encounter
--- OUTSIDE RECORDS SUMMARY | 2025-01-26 11:38 | XMS_ITS | Encounter Summary ---
Author Organization [facility] Address [address] [place] [address] Care Team Providers Care Mill Platform Supervisor Name Role Phone Lamin Chu MD Primary Care Provider [phone] Encounter Details Date Type Department Care Team (Late st Contact Info) Description 07/07/2003 Outpatient Historical [facility] Women's [facility] Care Cele Carmichael [address] [facility] [address] [place] [address] Tommy Ortgea Social History Tobacco Use Types Packs/Day Years Used Date Smoking Tobacco: Never Assessed Comments Unknown Sex and Gender Information Value Date Recorded Sex Assigned at Not on file Legal Sex Female 4:18 AM CASTING AGENT Gender Identity Not on file Sexual Orientation Not on file documented as of this encounter Plan of Treatment Not on file documented as of this encounter Visit Diagnoses Not on filedocumented in this encounter Additional Health Concerns Infection Onset Date Last Indicated Resolved Time R/O GI Pathogen 06/23/2022 06/23/2022 06/23/2022 3 :02 PM CDT R/O GI Pathogen 07/18/2023 07/18/2023 07/18/2023 3:02 PM CDT documented as of this encounter Care Teams Mill Platform Supervisor Relationship Specialty Start Date End Date Lamin Chu MD [address] [place] [place] [phone] PCP - General Family Practice 09/11/22 documented as of this encounter
--- OUTSIDE RECORDS SUMMARY | 2025-01-26 11:38 | XMS_ITS | Encounter Summary ---
Author Organization [facility] Address [address] [place] [address] Care Team Providers Care Cloth Napping Supervisor Name Role Phone Lamin Chu MD Primary Care Provider [phone] Encounter Details Date Type Department Care Team (Late st Contact Info) Description 12/17/2024 Results Follow-[facility] [address] [place] [address] Lamin Chu MD [address] [place] [address] Diagnostic Mammogram Bilateral W Ameya W Implants Social History Tobacco Use Types Packs/Day Years Used Date Smoking Tobacco: Former Smokeless Tobacco: Never AUDIT-C Answer Date Recorded Q1: How often [...] on file Legal Sex Female 10:56 PM HORSE SHOER Gender Identity Not on file Sexual Orientation Not on file 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
--- OUTSIDE RECORDS SUMMARY | 2025-01-26 11:38 | XMS_ITS | Clinical Summary ---
Author Organization [facility] Address [address] [place] [address] Care Team Providers Care Astronomy Instructor Name Role Phone Armen Thomas DO Primary Care Provider Source Comments [facility],non-owned Affiliates and Associated Physician Practices is amultiple site organization consisting of ambulatory clinics and hospital sitesin [place], [place], [place] and [place]. This disclosure is being madepursuant to the Care Everywhere program and may not contain all information available regarding this patient. 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 05/20/2014 Allergic rhinitis due to pollen 05/20/2014 Family History Medical History Relation Name Comments Broken Bones Brother Depression Brother Heart Disease Brother Arthritis - Rheumatoid Father Broken Bones Father Cancer Father Hearing Loss Father Heart Disease Father High Cholesterol Father Hypertension Father Alcohol abuse Maternal Grandmother Arthritis - Rheumatoid Maternal Grandmother Asthma Maternal Grandmother Broken Bones Maternal Grandmother CVA Maternal Grandmother Cancer Maternal Grandmother Depression Maternal Grandmother Eczema Maternal Grandmother Glaucoma Maternal Grandmother Hearing Loss Maternal Grandmother Heart Disease Maternal Grandmother Hypertension Maternal Grandmother Lung Disease Maternal Grandmother Mental Illness Maternal Grandmother Osteoporosis Maternal Grandmother Anxiety Disorder Mother Arthritis - Rheumatoid Mother Asthma Mother Broken Bones Mother Depression Mother Eczema Mother Hypertension Mother Lung Disease Mother Arthritis - Rheumatoid Paternal Grandmother Broken Bones Paternal Grandmother Cancer Paternal Grandmother Depression Paternal Grandmother Diabetes Paternal Grandmother Glaucoma Paternal Grandmother Hearing Loss Paternal Grandmother Heart Disease Paternal Grandmother High Cholesterol Paternal Grandmother Hypertension Paternal Grandmother Mental Illness Paternal Grandmother Osteoporosis Paternal Grandmother Parkinson's Disease Paternal Grandmother Relation Name Status Comments Brother Father Maternal Grandmother Mother Paternal Grandmother Social History Tobacco Use Types Packs/Day Years Used Date Smoking Tobacco: Never Smokeless Tobacco: Never Alcohol Use Standard Drinks/Week Comments No 0 (1 standard drink = 0.6 oz pur e alcohol) Comments Unknown Sex and Gender Information Value Date Recorded Sex Assigned at Not on file Legal Sex Female 5:28 PM PODIATRIST 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 Gender Identity Not on file Sexual Orientation Not on file Last Filed Vital Signs Vital Sign Reading Time Taken Comments Blood Pressure - - Pulse - - Temperature 36.7 C (98 F) 05/20/2014 1:38 PM CDT Respiratory Rate 12 05/20/2014 1:38 PM CDT Oxygen Saturation - - Inhaled Oxygen Concentration - - Weight - - Height 188 cm (6' 2) 05/20/2014 1:38 PM CDT Body Mass Index - - Plan of Treatment Health Maintenance Due Date Last Done Comments COLOGUARD (AGES 45-75) - COL ON CA SCREENING 1975 COLON MONITORING 1975 COLONOSCOPY - COLON CA SCREENING 1975 CT COLONOGRAPHY - COLON CA SCREENING 1975 Colorectal Cancer Screening 1975 FIT - COLON CA SCREENING 1975 FLEX SIG - COLON CA SCREENING 1975 LIPID TESTING 1975 MAMMOGRAM 1975 HIV SCREENING 1990 HEPATITIS C SCREENING 01/30/1993 DTAP/TDAP/TD VACCINES (1 - Tdap) 1994 HEPATITIS B VACCINE (1 of 3 - 19+ 3-dose series) 1994 DEPRESSION SCREENING 02/06/2024 COVID-19 VACCINE (1 - 2024-2 6 season) 2024 INFLUENZA VACCINE (#1) 2024 ZOSTER VACCINE (1 of 2) 2025 HIB VACCINE Aged Out No longer eligi ble based on patient's age to complete this topic HPV VACCINE Aged Out No longer eligi ble based on patient's age to complete this topic MENINGOCOCCAL (Group B) VACC INE SHARED DECISION-MAKING Aged Out No longer eligibl e based on patient's age to complete this topic MENINGOCOCCAL GROUPS A/C/Y/W VACCINE Aged Out No longer eligible b ased on patient's age to complete this topic Insurance [employer] Care Teams Astronomy Instructor Relationship Specialty Start Date End Date Armen Thomas DO PCP - General 05/22/14
--- OUTSIDE RECORDS SUMMARY | 2025-01-26 11:38 | XMS_ITS | Encounter Summary ---
Author Organization [facility] Address [address] [place] [address] Care Team Providers Care Collection Card Clerk Name Role Phone Lamin Chu MD Primary Care Provider [phone] Encounter Details Date Type Department Care Team (Late st Contact Info) Description 02/20/2005 Outpatient Historical [facility] [address] [facility] [address] [address] Jaun Mclaughlin MD [address] [place] [phone] Social History Tobacco Use Types Packs/Day Years Used Date Smoking Tobacco: Never Assessed Comments Unknown Sex and Gender Information Value Date Recorded Sex Assigned at Not on file Legal Sex Female 4:18 AM [employer] CA[employer] Gender Identity Not on file Sexual Orientation [...] documented as of this encounter Care Teams Collection Card Clerk Relationship Specialty Start Date End Date Lamin Chu MD [address] [place] [phone] PCP - General Family Practice 09/11/22 documented as of this encounter
--- OUTSIDE RECORDS SUMMARY | 2025-01-26 11:38 | XMS_ITS | Encounter Summary ---
Author Organization [facility] Address [address] [place] [address] Care Team Providers Care Student Life Vice President Name Role Phone Lamin Chu MD Primary Care Provider [phone] Encounter Details Date Type Department Care Team (Late st Contact Info) Description 07/06/2000 Outpatient Historical [facility] [address] [facility] [address] [address] Jaun Mclaughlin MD [address] [place] [phone] Social History Tobacco Use Types Packs/Day Years Used Date Smoking Tobacco: Never Assessed Comments Unknown Sex and Gender Information Value Date Recorded Sex Assigned at Not on file Legal Sex Female 4:18 AM MIDDLEWARE SOLUTIONS 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
--- OUTSIDE RECORDS SUMMARY | 2025-01-26 11:38 | XMS_ITS | Encounter Summary ---
Author Organization [facility] Address [address] [place] [address] Care Team Providers Care Software Engineering Manager Name Role Phone Lamin Chu MD Primary Care Provider [phone] Encounter Details Date Type Department Care Team (Late st Contact Info) Description 06/14/2005 Outpatient Historical [facility] [address] [facility] [address] [address] Jaun Mclaughlin MD [address] [place] [phone] Social History Tobacco Use Types Packs/Day Years Used Date Smoking Tobacco: Never Assessed Comments Unknown Sex and Gender Information Value Date Recorded Sex Assigned at Not on file Legal Sex Female 4:18 AM DOUBLER HELPER Gender Identity Not on file Sexual Orientation [...] documented as of this encounter Care Teams Software Engineering Manager Relationship Specialty Start Date End Date Lamin Chu MD [address] [place] [phone] PCP - General Family Practice 09/11/22 documented as of this encounter
--- OUTSIDE RECORDS SUMMARY | 2025-01-26 11:38 | XMS_ITS | Encounter Summary ---
Author Organization [facility] Address [address] [place] [address] Care Team Providers Care Skills Auditor Name Role Phone Lamin Chu MD Primary Care Provider [phone] Encounter Details Date Type Department Care Team (Late st Contact Info) Description 10/10/2005 Outpatient Historical [facility] [address] [place] [address] Laly Lerma MD [address] [address] Social History Tobacco Use Types Packs/Day Years Used Date Smoking Tobacco: Never Assessed Comments Unknown Sex and Gender Information Value Date Recorded Sex Assigned at Not on file Legal Sex Female 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
--- OUTSIDE RECORDS SUMMARY | 2025-01-26 11:38 | XMS_ITS | Encounter Summary ---
Author Organization [facility] Address [address] [place] [address] Care Team Providers Care Planer Offbearer Name Role Phone Lamin Chu MD Primary Care Provider [phone] Encounter Details Date Type Department Care Team (Late st Contact Info) Description 03/23/1999 Outpatient Historical [facility] Women[facility] Care [facility] [address] [facility] [address] [place] [address] Jaun Mclaughlin MD [address] [place] [phone] Social History Tobacco Use Types Packs/Day Years Used Date Smoking Tobacco: Never Assessed Comments Unknown Sex and Gender Information Value Date Recorded Sex Assigned at Not on file Legal Sex Female 4:18 AM ASSISTIVE TECHNOLOGY TRAINER Gender Identity Not on file Sexual Orientation [...] documented as of this encounter Care Teams Planer Offbearer Relationship Specialty Start Date End Date Lamin Chu MD [address] [place] [phone] PCP - General Family Practice 09/11/22 documented as of this encounter
--- NOTE | 2025-02-16 10:10 | P.SLEEP_ITS ---
Sleep Study - Home Unattended Date of Study: 01/26/25 Ordering Provider: Chintan Kerr MD Interpreting Provider: Maria Dolores Pelaez MD Home Sleep Study Type: Watch PAT Height: 1.88 m Weight: 107.955 kg Body Mass Index: 30.5 Neck Circumference (inches): 16.5 Ellis: 8 Reason for Sleep Study Loud snoring, witnessed apneas Sleep History Onelia Hogan is a 50-year-old female referred for sleep testing due to complaints of very loud snoring, witnessed apneas and choking and gasping during sleep. There is a family history of obstructive sleep apnea and restless legs syndrome. She does not wake with a morning headache. She does awaken with a dry mouth. She does not have nocturnal heartburn. On average she awakens twice at night to urinate. She had a prior sleep study in 2016 but this did not show obstructive sleep apnea. She does have high blood pressure. She has no difficulty falling asleep but she has difficulty staying asleep. She has difficulty returning to sleep. She wakes up too early in the morning. She does not feel anxiety about her sleep. She has daytime fatigue, excessive sleepiness, she is not refreshed on awakening. She has an urge to fall asleep during the day and she feels drowsy while driving. She clenches and grinds her teeth at night. She does not kick excessively but she does have a restless sensation in her legs at night. She does not have an urge to move her legs. The restless symptoms get worse with her legs are at rest and gets better with activities. This occurs only in the afternoon and evening. This does cause her concern. A normal work days bedtime is 11:30 p.m. taking 30 minutes to fall asleep spending 10 hours in bed, 7-1/2 hours of sleep. On days off bedtime is 1:00 p.m. falling asleep within 30 minute spending 10 hours in bed and 8 hours of sleep. She does not feel refreshed on waking. She does not take planned naps. Habits: Tobacco : Former smoker Caffeine : 3-4 cups daily Alcohol : none Recreational substances : none PMFSH Past Medical History Medical History Chronic pain ADD (attention deficit disorder) without hyperactivity Benign essential HTN Family History Family History Mother Diabetes mellitus Hypertension Asthma Family history of arthritis Father Hypertension Patient's father is in good health Family history of cardiovascular disease Family history of arthritis Family history of malignant neoplasm Sibling Patient's brother is in good health Family history of arthritis Social History Social History Social History: Smoking packs per day: 1 Smoking cigarettes per day: 20.0 Smoking status: Former smoker Tobacco type: cigarettes Second hand tobacco smoke exposure: No Smoking end date: 02/06/16 Alcohol intake: never Substance use: never Substance use type: does not use Living arrangements: with family Occupation/Education: occupation Gender identity (if verbalized by the patient): Female Sexual Orientation (if Verbalized by the Patient): Straight or Heterosexual Medications Home Medications ?Medication ?Instructions ?Recorded ?Confirmed ?Type albuterol sulfate 90 mcg/actuation 2 puff inhalation Q 6H PRN 12/31/18 01/15/25 History aerosol inhaler (ProAir HFA) venlafaxine 150 mg tablet,extended 150 mg PO DAILY #90 tabs 02/09/20 01/15/25 Rx release 24 hr lisdexamfetamine 70 mg capsule 70 mg PO DAILY #30 caps 05/18/20 01/15/25 Rx (Vyvanse) ondansetron HCl 4 mg tablet 4 mg PO Q6H PRN nausea and 06/28/20 01/15/25 Rx (Zofran) vomiting #10 tabs amlodipine 5 mg tablet mg PO 01/15/25 01/15/25 Hist ory clobetasol 0.05 % topical cream 1 applic topical BID # 15 grams 01/15/25 01/15/25 Rx eszopiclone 2 mg tablet (Lunesta) 2 mg PO ONCE #1 tabl et 01/15/25 01/15/25 Rx lisinopril 20 mg tablet mg PO BID 01/15/25 01/15/25 History pantoprazole 40 mg tablet,delayed mg PO 01/15/2501/15 History release triamcinolone acetonide 0.1 % applic topical 01/15/25 01/15/25 History topical cream Sleep Procedure The sleep study was completed using [employer] MedicalPAT a technically adequate device with seven channels: peripheral arterial tone, actigraphy, body position, snore, respiratory movement, pulse oximetry, sleep staging, and heart rate. Prior to using the device, the patient received verbal and written instructions for its application and was provided with the help desk phone number for additional telephonic instruction with 24-hour availability of qualified personnel to answer questions. Sleep Architecture The total recording time is 9 hrs, 10 min. The total sleep time is 7 hrs, 3 min. Sleep latency is 15 minutes. REM latency is 67 minutes. The patient had 18 episodes of waking. Sleep architecture shows 13.1% deep sleep, 63.0% light sleep, 23.9% stage REM. The patient spent 71.8% of total sleep time in the supine position. Sleep efficiency was 77%. Respiratory Analysis The overall AHI (pAHI 3%:) is 7.0. The central AHI is 0.3. The AHI was 5.6 in NREM and 11.7 in REM sleep. The AHI was 8.4 in Supine and 3.7 in Non-supine sleep. Percent of Harjeet Trejo respirations is 0.0. Oximetry Data The oxygen desaturation index (BERT 4%:) is 3.1. The mean saturation is 95%, and the lowest saturation is 89%. Time spent with saturation < 88% is 0.0 minutes. Snoring Profile Snoring average intensity is 42 dB. The patient snored above 45 decibels for 35.5 minutes, 8.4% of sleep time. Cardiac Profile The average pulse rate is 72 beats per minutes. The lowest pulse rate is 56bpm. The highest pulse rate reported is 103 bpm. Cardiac rhythm analysis in sleep does not show atrial fibrillation. Assessment and Plan Assessment and Plan (1) JOSETTE (obstructive sleep apnea): Code(s): G47.33 - Obstructive sleep apnea (adult) (pediatric) Status: Acute Assessment and Plan: This home sleep test on 01/26/2025 shows mild obstructive sleep apnea with an apnea-hypopnea index of 7.0, desaturation 89% and loud snoring. She has a comorbidity of hypertension and with this she is a candidate for treatment. Options include auto PAP, oral device or other treatment. She was referred by her ENT, Dr. Chintan Kerr, who was referring her to Dr Blake for Sleep Medicine evaluation. I recommend that this patient be prescribed Resmed AirSense 11 AutoPAP 5-15 cm H2O, CPAP mask/filters/tubing and humidifier chamber. This should be used with all episodes of sleep. Compliance should be reviewed within 31-90 days of starting therapy for usage greater than 4 hours per night greater than 70% of the nights. The patient should be asked about symptoms such as excessive daytime sleepiness, quality of sleep, decreased nocturia, increased mental functioning such as memory, mood, and concentration. Her sleep questionnaire indicates that she has issues with restless leg symptoms. Clinical correlation is recommended. BMI is 30. Weight management is advised. Clinical data suggests that weight loss of 10% can reduce the severity of respiratory events and snoring and improve AHI by as much as 25%. Data The data obtained during this sleep study is adequate for interpretation. Certification This sleep study has been reviewed by a board certified sleep medicine physician.
[2025-02-16 11:32] VITALS: BMI 30.5
== END 2025-01-27 13:14 | disposition home or self-care (01) ==
PROVIDERS: PCP Family Medicine; Visit Provider Otolaryngology
DX: G47.33 Obstructive sleep apnea (adult) (pediatric) (principal)
CPT/HCPCS: 95800